=== PATIENT | female | born 1975 | race Caucasian/White ===

== ENCOUNTER 2018-01-11 18:16 | Emergency (ER) | payer OTHER ==
[2018-01-11] MEDS ORDERED: IBUPROFEN 400 MG TABLET (FP) PO ONE ×2 (18:27→18:41)
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
[2018-01-11 18:32] VITALS: BP 138/90; PULSE 83; TEMP 98.6; BMI 28.7
== END 2018-01-11 19:33 | disposition home or self-care (01) ==
LOC: FER 18:16
DX: S16.1XXA Strain of muscle, fascia and tendon at neck level, initial encounter (principal); V43.52XA Car driver injured in collision with other type car in traffic accident, initial encounter; Y93.89 Activity, other specified; Y92.410 Unspecified street and highway as the place of occurrence of the external cause
CPT/HCPCS: 72050-TC-FY; 99282-25